=== PATIENT | female | born 1995 | race African-American/Black ===

== ENCOUNTER 2019-02-09 09:47 | Inpatient (IN) ==
[2019-02-09] MEDS ORDERED: Famotidine 20 MG/2 ML VIAL IVP PRN (10:23)
[2019-02-09] MEDS ORDERED: Naloxone 0.4 MG/ML INJ IVP PRN (10:23)
[2019-02-09] MEDS ORDERED: Ondansetron 4 MG/2 ML VIAL IVP PRN (10:23)
[2019-02-09] MEDS ORDERED: Lidocaine 1% 20 ML MDV INFILT PRN (10:23)
[2019-02-09] MEDS ORDERED: *HR* Nalbuphine 10 MG/ML AMPUL IVP PRN (10:23)
[2019-02-09] MEDS ORDERED: Metoclopramide 10 MG/2 ML VIAL IVP PRN (10:23)
[2019-02-09] MEDS ORDERED: Penicillin G Potassium 5,000,000 UNIT in 0.9 % Sodium Chloride Mini Bag 100 ML IVPB ONE (11:01)
[2019-02-09] MEDS: Ringers Solution, Lactated 1,000 ML IVC SCH ×2 (11:46→20:56)
[2019-02-09 11:54] LABS: Basophils % 0.2 %; Eosinophils # 0.1 K/mcL (0.0-0.6); Eosinophils % 1.4 %; Hematocrit 38.1 % (35.3-44.9); Hemoglobin 12.8 g/dL (11.5-15.4); Immature Granulocytes % 0.9 % (0-4); Immature Platelets 2.7 % (1.1-6.1); Lymphocytes % 19.5 %; Mean Corpuscular HGB Conc 33.6 g/dL (31.6-35.5); Mean Corpuscular Hemoglobin 29.4 pg (28.0-33.3); Mean Corpuscular Volume 87.4 fL (83.0-100.0); Mean Platelet Volume 9.5 fL (9.4-12.4); Monocytes # 0.7 K/mcL (0.0-1.3); Monocytes % 6.9 %; Neutrophils # 7.3 K/mcL (1.6-8.9); Platelet Count 320 K/mcL (140-400); Red Blood Count 4.36 M/mcL (3.82-4.97); Red Cell Distribution Width 13.3 % (11.5-14.5); Segmented Neutrophils % 71.1 %; White Blood Count 10.3 K/mcL (4.3-11.1)
[2019-02-09] MEDS: Oxytocin 20 units/ LR 1000 mL 20 UNIT/1,000 ML BAG IVC SCH (11:58)
[2019-02-09 12:28] LABS: Amphetamine Screen,Urine Negative ng/mL (Cutoff=1000); Barbiturate Screen,Urine Negative ng/mL (Cutoff=200); Benzodiazepines Screen,Urine Negative ng/mL (Cutoff=200); Cannabinoid Screen,Urine Negative ng/mL (Cutoff = 50); Cocaine Screen,Urine Negative ng/mL (Cutoff= 300); Opiate Screen,Urine Negative ng/mL (Cutoff=300); Phencyclidine Screen,Urine Negative ng/mL (Cutoff=25)
[2019-02-09] MEDS ORDERED: *HR* FentaNYL (PF) 100 MCG/2 ML VIAL EP ONE (13:37)
[2019-02-09] MEDS ORDERED: Bupivacaine-MPF 0.25% 10 ML VIAL EP ONE (13:37)
[2019-02-09] MEDS ORDERED: Epidural Premix (fent/bupiv) 110 ML EP SCH (13:45)
[2019-02-09] MEDS: Penicillin G Potassium 2,500,000 UNIT in 0.9 % Sodium Chloride 100 ML IVPB SCH ×2 (15:31→19:34)
[2019-02-09] MEDS ORDERED: Bupivacaine-MPF 0.25% 10 ML VIAL ONE (23:36)
[2019-02-09] MEDS ORDERED: *HR* FentaNYL (PF) 100 MCG/2 ML VIAL ONE (23:37)
[2019-02-10] MEDS: Penicillin G Potassium 2,500,000 UNIT in 0.9 % Sodium Chloride 100 ML IVPB SCH ×2 (07:52→11:16)
[2019-02-10] MEDS: Oxytocin 20 units/ LR 1000 mL 20 UNIT/1,000 ML BAG IVC SCH (11:17)
[2019-02-10] MEDS ORDERED: *HR* Oxytocin 10 UNIT/ML VIAL IM ONE ×2 (13:45→16:18)
[2019-02-10] MEDS ORDERED: Acetaminophen 325 MG TABLET PO PRN (16:18)
[2019-02-10] MEDS ORDERED: Oxytocin 20 units/ LR 1000 mL 20 UNIT/1,000 ML BAG IVC ONE (16:18)
[2019-02-10] MEDS ORDERED: Lanolin 7 G OINT...G. TP PRN (16:18)
[2019-02-10] MEDS ORDERED: Benzocaine/Menthol 56 GM AEROSOL SPRAY TP PRN (16:18)
[2019-02-11] MEDS: Ibuprofen 600 MG TABLET PO PRN ×2 (04:21→11:08)
[2019-02-11 06:26] LABS: Hematocrit 31.8 % (35.3-44.9); Immature Granulocytes % 0.6 % (0-4); Lymphocytes % 21.7 %; Mean Corpuscular HGB Conc 34.6 g/dL (31.6-35.5); Mean Corpuscular Hemoglobin 30.1 pg (28.0-33.3); Mean Corpuscular Volume 87.1 fL (83.0-100.0); Mean Platelet Volume 9.3 fL (9.4-12.4); Platelet Count 298 K/mcL (140-400); Red Blood Count 3.65 M/mcL (3.82-4.97); Red Cell Distribution Width 13.4 % (11.5-14.5); Segmented Neutrophils % 67.4 %
[2019-02-11 06:27] LABS: Basophils % 0.3 %; Eosinophils # 0.2 K/mcL (0.0-0.6); Lymphocytes # 3.4 K/mcL (0.6-4.6); Monocytes # 1.4 K/mcL (0.0-1.3)
[2019-02-11 06:30] LABS: Basophils # 0.1 K/mcL (0.0-0.2); Neutrophils # 10.5 K/mcL (1.6-8.9); White Blood Count 15.5 K/mcL (4.3-11.1)
[2019-02-11 08:10] VITALS: BP 106/68
[2019-02-11] MEDS ORDERED: Prenatal Vit/FA 1 EACH TABLET PO SCH (09:00)
== END 2019-02-11 15:39 | disposition home or self-care (01) | DRG 806 ==
LOC: 1NENULAB 09:47 → 1NENUOBS 02-10 16:17
PROVIDERS: ADMIT Advanced Practice Midwife; ATTEND Advanced Practice Midwife

== ENCOUNTER → 2020-09-11 12:12 | Observation (INO) ==
[2020-09-11 10:31] LABS: Bilirubin,Urine Negative (Negative); Blood,Urine Negative (Negative); Clarity,Urine Clear (Clear); Color,Urine Yellow (Yellow); Glucose,Urine (UA) Normal (Normal); Ketones,Urine Negative (Negative); Leukocyte Esterase,Urine Trace (Negative); Nitrite,Urine Negative (Negative); PH,Urine 7.5 pH Units (5.0-8.0); Protein,Urine Negative (Neg-Trace); Urobilinogen,Urine Normal (Normal)
[2020-09-11 12:12] LABS: Squamous Epithelial Cell,Urine Few per hpf (None-Few)
[2020-09-11 12:14] LABS: Bacteria,Urine Few per hpf (None-Few); RBC,Urine 0-3 per hpf (0-3); WBC,Urine 0-3 per hpf (0-3)
== END | disposition home or self-care (01) ==
LOC: 1NENULAB
PROVIDERS: ADMIT Registered Nurse; ATTEND Registered Nurse

== ENCOUNTER 2020-10-23 07:59 | Inpatient (IN) ==
[2020-10-23] MEDS ORDERED: *HR* Nalbuphine 10 MG/ML AMPUL IV PRN (08:24)
[2020-10-23] MEDS ORDERED: Metoclopramide 10 MG/2 ML VIAL IVP PRN (08:24)
[2020-10-23] MEDS ORDERED: Ondansetron 4 MG/2 ML VIAL IVP PRN (08:24)
[2020-10-23] MEDS ORDERED: Famotidine 20 MG/2 ML VIAL IVP PRN (08:24)
[2020-10-23] MEDS ORDERED: Naloxone 0.4 MG/ML INJ IVP PRN (08:24)
[2020-10-23] MEDS ORDERED: Lidocaine 1% 20 ML MDV INFILT PRN (08:24)
[2020-10-23] MEDS ORDERED: Ringers Solution, Lactated 1,000 ML IVC SCH (08:30)
[2020-10-23] MEDS ORDERED: Penicillin G Potassium 5,000,000 UNIT in 0.9 % Sodium Chloride Mini Bag 100 ML IVPB ONE (08:53)
[2020-10-23 09:59] LABS: Basophils % 0.3 %; Eosinophils # 0.2 K/mcL (0.0-0.6); Eosinophils % 1.8 %; Hematocrit 35.8 % (35.3-44.9); Hemoglobin 11.6 g/dL (11.5-15.4); Immature Granulocytes % 0.5 % (0-4); Lymphocytes # 2.1 K/mcL (0.6-4.6); Lymphocytes % 19.3 %; Mean Corpuscular HGB Conc 32.4 g/dL (31.6-35.5); Mean Corpuscular Hemoglobin 28.1 pg (28.0-33.3); Mean Corpuscular Volume 86.7 fL (83.0-100.0); Mean Platelet Volume 9.6 fL (9.4-12.4); Monocytes # 0.8 K/mcL (0.0-1.3); Monocytes % 7.1 %; Neutrophils # 7.6 K/mcL (1.6-8.9); Platelet Count 341 K/mcL (140-400); Red Blood Count 4.13 M/mcL (3.82-4.97); Red Cell Distribution Width 13.2 % (11.5-14.5); White Blood Count 10.7 K/mcL (4.3-11.1)
[2020-10-23] MEDS ORDERED: Oxytocin 20 units/ LR 1000 mL 20 UNIT/1,000 ML BAG IVC SCH ×2 (10:00→22:14)
[2020-10-23 10:09] LABS: Amphetamine Screen,Urine Negative ng/mL (Cutoff=1000); Barbiturate Screen,Urine Negative ng/mL (Cutoff=200); Benzodiazepines Screen,Urine Negative ng/mL (Cutoff=200); Cannabinoid Screen,Urine Negative ng/mL (Cutoff = 50); Cocaine Screen,Urine Negative ng/mL (Cutoff= 300); Opiate Screen,Urine Negative ng/mL (Cutoff=300); Phencyclidine Screen,Urine Negative ng/mL (Cutoff=25)
[2020-10-23 12:13] LABS: Varicella Zoster IgG Antibody Positive
[2020-10-23 12:14] LABS: Rubella IgG Antibody POSITIVE (POSITIVE)
[2020-10-23 12:48] LABS: Hepatitis B Surface Antigen Nonreactive (Nonreactive)
[2020-10-23 13:17] LABS: HIV-1&2 Antibody & p24 Ag Nonreactive (Nonreactive)
[2020-10-23] MEDS: Penicillin G Potassium 2,500,000 UNIT/105 ML MLS IVPB SCH ×2 (14:22→18:06)
[2020-10-23] MEDS ORDERED: EPHEDrine 50 MG/ML VIAL IVP PRN (18:44)
[2020-10-23] MEDS ORDERED: Epidural Premix (fent/bupiv) 110 ML EP SCH (18:45)
[2020-10-23] MEDS ORDERED: Acetaminophen 325 MG TABLET PO PRN (22:14)
[2020-10-23] MEDS ORDERED: Benzocaine/Menthol 56 GM AEROSOL SPRAY TP PRN (22:14)
[2020-10-23] MEDS ORDERED: Lanolin 7 G OINT...G. TP PRN (22:14)
[2020-10-24 07:59] VITALS: O2SAT 98
[2020-10-24] MEDS: Ibuprofen 600 MG TABLET PO PRN ×2 (08:29→16:47)
[2020-10-24] MEDS ORDERED: Prenatal Vit/FA 1 EACH TABLET PO SCH (09:00)
[2020-10-24 17:12] VITALS: BP 107/63; PULSE 89; TEMP 98
== END 2020-10-24 18:05 | disposition home or self-care (01) | DRG 807 ==
LOC: 1NENULAB 07:59 → 1NENUOBS 22:13
PROVIDERS: ADMIT Advanced Practice Midwife; ATTEND Advanced Practice Midwife